=== PATIENT | female | born 1950 | race Caucasian/White ===

== ENCOUNTER 2022-03-08 05:36 | Inpatient (IN) ==
[2022-03-08] MEDS ORDERED: ceFAZolin 2,000 MG/50 ML DUPLEX IV ONE (05:52)
[2022-03-08] MEDS ORDERED: VANCOMYCIN INJ 1,000 MG in SODIUM CHLORIDE 0.9% 250 ML IV ONE (05:52)
[2022-03-08] MEDS ORDERED: LACTATED RINGERS 1,000 ML IV SCH (06:00)
[2022-03-08 06:32] LABS: Hyaline Casts,Urine 6 /LPF (0-3); Mucus,Urine Few /LPF (Occasional); RBC,Urine 10 /HPF (0-4); Squamous Epithelial Cell,Urine Few /HPF (0-10)
[2022-03-08 06:33] LABS: Protein,Urine Negative (Negative); Urine Appearance Slightly Hazy (Clear); Urine Color y (Yellow); Urine Specific Gravity 1.025 (1.001-1.035); Urine pH 5.5 (4.5-8.0)
[2022-03-08 06:34] LABS: Bilirubin,Urine Negative (Negative); Blood, Urine Trace mg/dL (Negative); Glucose,Urine (UA) Negative (Negative); Ketones,Urine Negative (Negative); Nitrite,Urine Negative (Negative)
[2022-03-08] MEDS ORDERED: ACETAMINOPHEN 500 MG TABLET PO ONE (06:56)
[2022-03-08] MEDS ORDERED: DIAZEPAM 5 MG TABLET PO ONE (06:56)
[2022-03-08] MEDS ORDERED: FAMOTIDINE 20 MG TABLET PO ONE (06:56)
[2022-03-08] MEDS ORDERED: GABAPENTIN 400 MG CAPSULE PO ONE (06:56)
[2022-03-08 06:58] LABS: PT Patient Result 11.4 SECS (10.5-12.0); Partial Thromboplastin Time 26.5 SECS (23.8-32.1)
[2022-03-08 07:17] LABS: Basophils % 0.3 % (0.0-0.8); Eosinophils % 0.2 % (0.00-10.9); Hematocrit 31.3 VOL% (35.7-47.0); Hemoglobin 10.2 GM/DL (12.0-16.0); Immature Granulocytes % 0.3 %; Immature Granulocytes Absolute 0.04 #; Lymphocytes # 0.6 10*3/uL (1.4-4.0); Lymphocytes % 5.2 % (21.3-54.2); Mean Corpuscular HGB Conc 32.6 GM/DL (32-36); Mean Corpuscular Volume 92.3 FL (87-102); Mean Platelet Volume 12.1 FL (9.6-12.0); Monocytes # 0.5 10*3/uL (0.11-0.8); Monocytes % 4.2 % (1.7-12.7); Neutrophils % 89.8 % (38.7-73.9); Platelet Count 231 T/CUMM (130-400); Red Blood Count 3.39 MC/CUMM (3.8-5.5); Red Cell Distribution Width 13.2 % (9.3-17.3); White Blood Count 12.3 T/CUMM (4-12)
[2022-03-08] MEDS ORDERED: propofoL 200 MG/20 ML VIAL IV ONE (08:42)
[2022-03-08] MEDS ORDERED: LIDOCAINE 2% 5 ML VIAL ONE (08:42)
[2022-03-08] MEDS ORDERED: DEXAMETHASONE 4 MG/1 ML VIAL ONE (08:42)
[2022-03-08] MEDS ORDERED: DEXMEDETOMIDINE 200 MCG/2 ML VIAL ONE (08:42)
[2022-03-08] MEDS ORDERED: ONDANSETRON 4 MG/2 ML VIAL ONE (08:42)
[2022-03-08] MEDS ORDERED: KETAMINE 500 MG/10 ML VIAL ONE (08:42)
[2022-03-08] MEDS ORDERED: BUPIVACAINE 0.5% 50 ML VIAL ONE (08:48)
[2022-03-08] MEDS ORDERED: ePHEDrine 50 MG/ML VIAL ONE (09:39)
[2022-03-08] MEDS ORDERED: ONDANSETRON 4 MG/2 ML VIAL IV PRN (09:48)
[2022-03-08] MEDS ORDERED: KETOROLAC 15 MG/1 ML VIAL IV PRN (09:48)
[2022-03-08] MEDS ORDERED: MAGNESIUM HYDROXIDE SUSP 30 ML UDCUP PO PRN (09:48)
[2022-03-08] MEDS ORDERED: diphenhydrAMINE CAP 25 MG CAPSULE PO PRN (09:48)
[2022-03-08] MEDS ORDERED: TRANEXAMIC ACID 1,000 MG/10 ML VIAL ONE (10:02)
[2022-03-08] MEDS ORDERED: MINERAL OIL/PETROLATUM OPH OINT 3.5 GM TUBE ONE (10:25)
[2022-03-08] MEDS ORDERED: BACITRACIN OINT 0.9 GM PACK TOP ONE (11:03)
[2022-03-08] MEDS: LACTATED RINGERS 1,000 ML IV SCH ×2 (15:08→23:19)
[2022-03-08] MEDS: ceFAZolin 2,000 MG/50 ML DUPLEX IV SCH ×2 (15:11→23:15)
[2022-03-08] MEDS: SULFAMETHOX/TRIMETHOPRIM 800-160 MG TABLET PO SCH (21:51)
[2022-03-09] MEDS ORDERED: FONDAPARINUX 2.5 MG/0.5 ML SYRINGE SUBCUT SCH (04:00)
[2022-03-09 05:47] LABS: Basophils # 0.1 10*3/uL (0.0-0.2); Basophils % 0.3 % (0.0-0.8); Eosinophils % 0.1 % (0.00-10.9); Hematocrit 27.9 VOL% (35.7-47.0); Hemoglobin 9.2 GM/DL (12.0-16.0); Immature Granulocytes % 0.4 %; Immature Granulocytes Absolute 0.07 #; Lymphocytes # 0.6 10*3/uL (1.4-4.0); Mean Corpuscular Volume 92.1 FL (87-102); Mean Platelet Volume 11.3 FL (9.6-12.0); Monocytes # 0.9 10*3/uL (0.11-0.8); Monocytes % 5.6 % (1.7-12.7); Neutrophils % 89.6 % (38.7-73.9); Platelet Count 237 T/CUMM (130-400); Red Blood Count 3.03 MC/CUMM (3.8-5.5); Red Cell Distribution Width 13.2 % (9.3-17.3); White Blood Count 15.7 T/CUMM (4-12)
[2022-03-09 06:02] LABS: Calcium 8.5 MG/DL (8.5-10.1); Osmolality,Calculated 278.5 MOS/KG (273-304)
[2022-03-09 06:08] LABS: Lymphocytes 4 % (20-55); Platelet Estimate Adequate; Total Cells Counted 100
[2022-03-09] MEDS ORDERED: PANTOPRAZOLE 40 MG TABLET PO SCH (06:30)
[2022-03-09 07:18] VITALS: BP 147/73
[2022-03-09] MEDS: SULFAMETHOX/TRIMETHOPRIM 800-160 MG TABLET PO SCH (08:27)
[2022-03-09] MEDS ORDERED: METOPROLOL SUCCINATE XL 50 MG TABLET PO SCH (09:00)
== END 2022-03-09 12:23 | disposition home or self-care (01) | DRG 483 ==
LOC: N.SDSINP 05:36 → N.3E 13:47
PROVIDERS: ADMIT Orthopaedic Surgery; ATTEND Orthopaedic Surgery